=== PATIENT | male | born 1965 | race African-American/Black ===

== ENCOUNTER 2020-12-03 11:40 | Emergency (ER) | payer MEDICAID ==
[~2020-12-03] VITALS: Ht 175.3 cm; Wt 75.0 kg
[2020-12-03] MEDS ORDERED: LIDOCAINE HCL/PF 1% 10 MG/ML 5ML VIAL INFIL ONE (12:15)
[2020-12-03] MEDS ORDERED: IBUPROFEN 600MG TABLET PO ONE (12:15)
[2020-12-03] MEDS ORDERED: BACITRACIN ZINC OINT UDPKT TOP ONE (12:15)
[2020-12-03 12:24] VITALS: BP 130/65
[2020-12-03] MEDS ORDERED: SULF1TAB48 MT (13:19)
[2020-12-03] MEDS ORDERED: IBUP-2029 PO (13:19)
[2020-12-03] MEDS ORDERED: CEPH500C2 PO (13:19)
== END 2020-12-03 13:30 | disposition home or self-care (01) ==
LOC: ER 11:40
DX: L02.414 Cutaneous abscess of left upper limb (principal)
CPT/HCPCS: 10060; 99283; J3490

== ENCOUNTER 2020-12-05 07:48 | Emergency (ER) | payer MEDICAID ==
[~2020-12-05] VITALS: Ht 172.7 cm; Wt 77.0 kg
[~2020-12-05 07:48] MED LIST: CEPH500C2 PO; IBUP-2029 PO; SULF1TAB48 MT
[2020-12-05 08:22] VITALS: BP 124/43
== END 2020-12-05 08:23 | disposition home or self-care (01) ==
LOC: ER 07:48
DX: Z48.00 Encounter for change or removal of nonsurgical wound dressing (principal); L02.414 Cutaneous abscess of left upper limb; R03.0 Elevated blood-pressure reading, without diagnosis of hypertension
CPT/HCPCS: 99282

== ENCOUNTER 2020-12-07 12:17 | Emergency (ER) | payer MEDICAID ==
[~2020-12-07] VITALS: Ht 165.1 cm; Wt 78.0 kg
[2020-12-07 12:35] VITALS: BP 102/69
== END 2020-12-07 15:22 | disposition home or self-care (01) ==
LOC: ER 12:17
DX: L02.414 Cutaneous abscess of left upper limb (principal); Z79.899 Other long term (current) drug therapy
CPT/HCPCS: 99282; Z7610

== ENCOUNTER 2021-11-22 18:24 | Emergency (ER) | payer MEDICAID ==
[~2021-11-22] VITALS: Ht 172.7 cm; Wt 78.0 kg
[2021-11-22] MEDS ORDERED: OLANZAPINE 10 MG/VIAL IM NR (19:00)
[2021-11-22] MEDS ORDERED: OLANZAPINE 10 MG/VIAL IM ONE (19:00)
[2021-11-22 20:46] LABS: BASOPHILS % 0.4 % (0.0-2.0); EOSINOPHILS % 0.2 % (0.0-5.0); HEMOGLOBIN. 16.5 g/dL (14.0-18.0); LYMPHOCYTES % 22.1 % (20.0-50.0); MEAN CORPUSCULAR HEMOGLOBIN 28.3 pg (28.0-32.0); MEAN CORPUSCULAR VOLUME 80.7 fL (80.0-94.0); MEAN PLATELET VOLUME 9.4 fl (7.4-10.4); MONOCYTES % 11.7 % (2.0-8.0); NEUTROPHILS % 65.6 % (40.0-76.0); PLATELET 189 x1000/uL (130-400); RED BLOOD CELL COUNT 5.82 mill/uL (4.7-6.1)
[2021-11-22 20:54] LABS: CHLORIDE 105 mEq/L (98-107)
[2021-11-22 21:02] LABS: ETHANOL BLOOD < 10 mg/dL
[2021-11-22 22:07] LABS: *AMPHETAMINES SCREEN URINE NEGATIVE (NEGATIVE); *BARBITURATES SCREEN URINE NEGATIVE (NEGATIVE); *BENZODIAZEPINES SCREEN URINE NEGATIVE (NEGATIVE); *COCAINE SCREEN URINE NEGATIVE (NEGATIVE); CANNABINOID URINE SCREEN PRESUMTIVE POSITIVE (NEGATIVE); METHADONE URINE SCREEN NEGATIVE (NEGATIVE); OPIATES URINE SCREEN NEGATIVE (NEGATIVE); PHENCYCLIDINE URINE SCREEN NEGATIVE (NEGATIVE)
[2021-11-22] MEDS ORDERED: LORAZEPAM 1MG TABLET PO ONE (23:00)
[2021-11-22] MEDS ORDERED: LORAZEPAM 1MG TABLET PO NR (23:15)
[2021-11-23] MEDS ORDERED: FLUOXETINE HCL 10 MG CAPSULE PO SCH (11:45)
[2021-11-23] MEDS: OLANZAPINE 5MG TABLET PO SCH ×4 (17:18→21:06)
[2021-11-23] MEDS: TRAZODONE HCL 50MG TABLET PO SCH ×2 (20:56→21:07)
[2021-11-24] MEDS ORDERED: LORAZEPAM 2MG/ML CPJ IM STA (06:35)
[2021-11-24] MEDS ORDERED: OLANZAPINE 10 MG/VIAL IM STA (06:35)
[2021-11-24] MEDS ORDERED: OLANZAPINE 5MG TABLET PO SCH (09:00)
[2021-11-24 13:14] VITALS: BP 133/77
== END 2021-11-24 13:25 ==
LOC: ER 18:24
DX: F28 Other psychotic disorder not due to a substance or known physiological condition (principal); Z20.822 Contact with and (suspected) exposure to COVID-19; R45.851 Suicidal ideations; E87.6 Hypokalemia; R03.0 Elevated blood-pressure reading, without diagnosis of hypertension; F12.90 Cannabis use, unspecified, uncomplicated
CPT/HCPCS: 36415; 80053; 80305; 80307; 80320; 80329; 85025; 96372; 99285; C9803; J2060; J3490; U0003; U0005; G0480

== ENCOUNTER 2022-02-08 13:34 | Emergency (ER) | payer MEDICAID ==
[~2022-02-08] VITALS: Ht 172.7 cm; Wt 68.0 kg
[2022-02-08] MEDS: OLANZAPINE 5MG TABLET ODT PO SCH (18:02)
[2022-02-08 18:07] LABS: CLARITY URINE CLEAR (CLEAR); COLOR URINE YELLOW (YELLOW); KETONES URINE TRACE (NEGATIVE); LEUKOCYTE ESTERASE URINE NEGATIVE (NEGATIVE); NITRITE URINE NEGATIVE (NEGATIVE); OCCULT BLOOD URINE NEGATIVE (NEGATIVE); PH URINE 5.5 (4.5-8.0); PROTEIN URINE NEGATIVE (NEGATIVE); SPECIFIC GRAVITY URINE 1.007 (1.005-1.030)
[2022-02-08 18:12] LABS: BASOPHILS % 0.4 % (0.0-2.0); EOSINOPHILS % 0.7 % (0.0-5.0); HEMATOCRIT. 44.7 % (42.0-52.0); HEMOGLOBIN. 15.3 g/dL (14.0-18.0); LYMPHOCYTES % 31.8 % (20.0-50.0); MEAN CORPUSCULAR HEMOGLOBIN 28.4 pg (28.0-32.0); MEAN PLATELET VOLUME 9.4 fl (7.4-10.4); MONOCYTES % 10.3 % (2.0-8.0); NEUTROPHILS % 56.8 % (40.0-76.0); PLATELET 184 x1000/uL (130-400); RED BLOOD CELL COUNT 5.39 mill/uL (4.7-6.1)
[2022-02-08 18:19] LABS: *AMPHETAMINES SCREEN URINE NEGATIVE (NEGATIVE); *BARBITURATES SCREEN URINE NEGATIVE (NEGATIVE); *BENZODIAZEPINES SCREEN URINE NEGATIVE (NEGATIVE); *COCAINE SCREEN URINE NEGATIVE (NEGATIVE); CANNABINOID URINE SCREEN NEGATIVE (NEGATIVE); METHADONE URINE SCREEN NEGATIVE (NEGATIVE); OPIATES URINE SCREEN NEGATIVE (NEGATIVE); PHENCYCLIDINE URINE SCREEN NEGATIVE (NEGATIVE)
[2022-02-08 18:23] LABS: CHLORIDE 102 mEq/L (98-107)
[2022-02-08 18:29] LABS: ETHANOL BLOOD < 10 mg/dL
[2022-02-08] MEDS ORDERED: POTASSIUM CHLORIDE 20MEQ TABLET SR PO NR (20:00)
[2022-02-08] MEDS ORDERED: POTASSIUM CHLORIDE 10MEQ TABLET SR PO NR (20:57)
[2022-02-09] MEDS: OLANZAPINE 5MG TABLET ODT PO SCH (09:06)
[2022-02-09] MEDS ORDERED: OLAN5TAB3 MT ×2 (14:55→15:40)
[2022-02-09 15:22] VITALS: BP 128/73
[2022-02-09] MEDS ORDERED: OLANZAPINE 5MG TABLET ODT PO SCH (17:00)
== END 2022-02-09 15:51 | disposition still patient (30) ==
LOC: ER 13:34
DX: U07.1 COVID-19 (principal); R44.0 Auditory hallucinations; E78.00 Pure hypercholesterolemia, unspecified; Z86.59 Personal history of other mental and behavioral disorders
CPT/HCPCS: 36415; 80053; 80305; 80307; 80320; 80329; 81003; 85025; 87426; 99285; C9803; U0003; U0005; Z7610; G0480

== ENCOUNTER 2023-05-28 02:57 | Inpatient (IN) | payer MEDICAID ==
[~2023-05-28] VITALS: Ht 172.7 cm; Wt 73.0 kg
[~2023-05-28 02:57] MED LIST changes: +OLAN5TAB3 MT
[2023-05-28] MEDS ORDERED: SODIUM CHLORIDE 0.9% 1,000 ML IV ONE (03:45)
[2023-05-28 03:59] LABS: BASOPHILS % 0.3 % (0.0-2.0); EOSINOPHILS % 0.9 % (0.0-5.0); HEMATOCRIT. 43.7 % (42.0-52.0); LYMPHOCYTES % 21.1 % (20.0-50.0); MEAN CORPUSCULAR HEMOGLOBIN 28.2 pg (28.0-32.0); MEAN CORPUSCULAR HGB CONC 34.3 g/dL (31.0-37.0); MEAN CORPUSCULAR VOLUME 82.3 fL (80.0-94.0); MEAN PLATELET VOLUME 9.9 fl (7.4-10.4); NEUTROPHILS % 69.7 % (40.0-76.0); PLATELET 154 x1000/uL (130-400); RED CELL DISTRIBUTION WIDTH 13.4 % (11.6-14.6); WHITE BLOOD COUNT 4.6 x1000/uL (4.5-11.0)
[2023-05-28 04:07] LABS: CLARITY URINE CLEAR (CLEAR); COLOR URINE YELLOW (YELLOW); GLUCOSE URINE NEGATIVE (NEGATIVE); KETONES URINE NEGATIVE (NEGATIVE); LEUKOCYTE ESTERASE URINE NEGATIVE (NEGATIVE); NITRITE URINE NEGATIVE (NEGATIVE); OCCULT BLOOD URINE NEGATIVE (NEGATIVE); PROTEIN URINE NEGATIVE (NEGATIVE)
[2023-05-28 04:12] LABS: *AMPHETAMINES SCREEN URINE NEGATIVE (NEGATIVE); *BARBITURATES SCREEN URINE NEGATIVE (NEGATIVE); *BENZODIAZEPINES SCREEN URINE NEGATIVE (NEGATIVE); *COCAINE SCREEN URINE NEGATIVE (NEGATIVE); CANNABINOID URINE SCREEN PRESUMPTIVE POSITIVE (NEGATIVE); ECSTASY MDMA SCREEN URINE NEGATIVE (NEGATIVE); METHADONE URINE SCREEN Neg (NEGATIVE); OPIATES URINE SCREEN NEGATIVE (NEGATIVE); PHENCYCLIDINE URINE SCREEN NEGATIVE (NEGATIVE)
[2023-05-28 04:12] LABS: AMMONIA < 10 uMol/L (<32)
[2023-05-28 04:13] LABS: ACETAMINOPHEN < 2 ug/mL (10-30); ALANINE AMINOTRANSFERASE 41 IU/L (10-49); ALBUMIN 4.4 g/dL (3.2-4.8); ASPARTATE AMINOTRANSFERASE 32 IU/L (<34); BILIRUBIN TOTAL 0.4 mg/dL (0.1-1.0); CALCIUM 9.2 mg/dL (8.7-10.4); CARBON DIOXIDE 27 mEq/L (21-32); CHLORIDE 107 mEq/L (98-107); CREATINE KINASE 372 IU/L (46-171); CREATININE 1.1 mg/dL (0.6-1.3); GLUCOSE 138 mg/dL (70-105); POTASSIUM 3.5 mEq/L (3.5-5.1); PROTEIN TOTAL 7.1 g/dL (6.0-8.3); SODIUM 141 mEq/L (136-145); UREA NITROGEN BLOOD 15 mg/dL (9-23)
[2023-05-28 04:22] LABS: ETHANOL BLOOD < 10 mg/dL (<10); TROPONIN I HIGH SENSITIVITY < 4 ng/L (3.0-53)
[2023-05-28] MEDS ORDERED: LORAZEPAM 2MG/ML CPJ IV ONE (10:00)
[2023-05-28] MEDS ORDERED: LORAZEPAM 2MG/ML UD SYRINGE IV NR (10:15)
[2023-05-28] MEDS ORDERED: SODIUM CHLORIDE 0.9% 500 ML IV ONE (12:30)
[2023-05-28] MEDS ORDERED: DIPHENHYDRAMINE 50MG/ML VIAL IV PRN (14:45)
[2023-05-28] MEDS ORDERED: ACETAMINOPHEN 325MG TABLET PO PRN (14:45)
[2023-05-28] MEDS ORDERED: ONDANSETRON HCL 4MG/2ML INJ IV PRN (14:45)
[2023-05-28] MEDS ORDERED: IPRATROPIUM/ALBUTEROL 0.5-3(2.5)MG/3ML NEB HHN PRN (14:45)
[2023-05-28] MEDS ORDERED: CLONIDINE 0.1MG TABLET PO PRN (14:45)
[2023-05-28 18:00] VITALS: BP 148/71; PULSE 55; RESP 19; TEMP 97.2
[2023-05-28 20:00] VITALS: BP 162/80; PULSE 72; RESP 19; TEMP 97.1
[2023-05-29] VITALS: BP 145/51; PULSE 76; RESP 18; TEMP 98.4
[2023-05-29 06:36] LABS: BASOPHILS % 0.5 % (0.0-2.0); EOSINOPHILS % 0.9 % (0.0-5.0); HEMATOCRIT. 38.7 % (42.0-52.0); HEMOGLOBIN. 13.4 g/dL (14.0-18.0); LYMPHOCYTES % 12.7 % (20.0-50.0); MEAN CORPUSCULAR HEMOGLOBIN 28.3 pg (28.0-32.0); MEAN CORPUSCULAR HGB CONC 34.6 g/dL (31.0-37.0); MEAN CORPUSCULAR VOLUME 81.9 fL (80.0-94.0); MEAN PLATELET VOLUME 10.1 fl (7.4-10.4); MONOCYTES % 9.3 % (2.0-8.0); NEUTROPHILS % 76.6 % (40.0-76.0); PLATELET 144 x1000/uL (130-400); RED BLOOD CELL COUNT 4.72 mill/uL (4.7-6.1); RED CELL DISTRIBUTION WIDTH 13.4 % (11.6-14.6); WHITE BLOOD COUNT 4.3 x1000/uL (4.5-11.0)
[2023-05-29 07:19] LABS: ALANINE AMINOTRANSFERASE 41 IU/L (10-49); ASPARTATE AMINOTRANSFERASE 37 IU/L (<34); BILIRUBIN TOTAL 0.4 mg/dL (0.1-1.0); CARBON DIOXIDE 27 mEq/L (21-32); CHLORIDE 111 mEq/L (98-107); CREATININE 0.9 mg/dL (0.6-1.3); GLUCOSE 99 mg/dL (70-105); SODIUM 143 mEq/L (136-145); UREA NITROGEN BLOOD 8 mg/dL (9-23)
[2023-05-29 08:00] VITALS: BP 130/52; PULSE 85; RESP 20; TEMP 97.1
[2023-05-29 12:28] VITALS: BP 148/53; PULSE 72; RESP 20; TEMP 97.1
[2023-05-29 16:00] VITALS: BP 153/54; PULSE 60; RESP 20; TEMP 96.9
[2023-05-29 20:00] VITALS: BP 139/62; PULSE 60; RESP 17; TEMP 98
[2023-05-30] VITALS: BP 146/56; PULSE 66; RESP 18; TEMP 97.1
[2023-05-30 04:00] VITALS: BP 131/63; PULSE 58; RESP 17; TEMP 96.7
[2023-05-30 08:00] VITALS: BP 155/72; PULSE 62; RESP 22; TEMP 96.1
[2023-05-30] MEDS: OLANZAPINE 10MG TABLET PO SCH ×2 (09:27→17:00)
[2023-05-30 12:00] VITALS: BP 153/76; PULSE 64; RESP 20; TEMP 97.9
[2023-05-30 16:00] VITALS: BP 165/80; PULSE 63; RESP 20; TEMP 97.9
[2023-05-30 20:00] VITALS: BP 131/63; PULSE 61; RESP 18; TEMP 97.8
[2023-05-30] MEDS: DIPHENHYDRAMINE 50MG CAPSULE PO SCH (21:00)
[2023-05-31] VITALS: BP 136/67; PULSE 59; RESP 18; TEMP 97.8
[2023-05-31] MEDS: OLANZAPINE 10MG TABLET PO SCH ×2 (09:00→17:05)
[2023-05-31] MEDS ORDERED: OLAN10TA72 PO (10:23)
[2023-05-31] MEDS ORDERED: DIPH25CA83 MT (10:23)
[2023-05-31 12:00] VITALS: BP 140/93; PULSE 81; RESP 20; TEMP 97.7
[2023-05-31] MEDS: DIPHENHYDRAMINE 50MG CAPSULE PO SCH (21:00)
[2023-06-01 08:00] VITALS: BP 101/60; PULSE 66; RESP 20; TEMP 98
[2023-06-01] MEDS: OLANZAPINE 10MG TABLET PO SCH ×2 (09:00→17:51)
[2023-06-01 12:00] VITALS: BP 135/69; PULSE 88; RESP 20; TEMP 97.7
[2023-06-01 16:00] VITALS: BP 121/78; PULSE 78; RESP 20; TEMP 97.8
[2023-06-01 17:04] VITALS: BP 121/78; PULSE 78; TEMP 98.5; O2SAT 96
[2023-06-01 20:00] VITALS: BP 123/75; PULSE 84; RESP 18; TEMP 97.6
[2023-06-02 04:00] VITALS: BP 120/81; PULSE 78; RESP 18; TEMP 98.1
[2023-06-02 08:00] VITALS: BP 128/93; PULSE 84; RESP 20; TEMP 98.3
[2023-06-02 09:02] VITALS: BP 128/98; PULSE 84; TEMP 97.9; O2SAT 100
[2023-06-02] MEDS: OLANZAPINE 10MG TABLET PO SCH (09:47)
== END 2023-06-02 11:09 | DRG 52 ==
LOC: ER 03:06 → EDBEDREQ 12:32 → EDBEDREQTM 12:32 → MICUSO 12:42 → 6WST 18:11
PROVIDERS: ADMIT Internal Medicine; ATTEND Internal Medicine
DX: G93.40 Encephalopathy, unspecified (principal); E78.00 Pure hypercholesterolemia, unspecified; F20.9 Schizophrenia, unspecified; Z20.822 Contact with and (suspected) exposure to COVID-19; F31.9 Bipolar disorder, unspecified; Z79.899 Other long term (current) drug therapy
CPT/HCPCS: 36415; 70551; 71045; 80053; 80305; 80307; 80320; 80329; 81003; 82140; 82550; 82962; 83605; 84484; 85025; 87426; 93005; 93970; 99285; J1200; J2060; J7030; Q0163; G0480